=== PATIENT | female | born 1955 | race Asian ===

== ENCOUNTER 2016-10-27 06:36 | Inpatient (IN) | payer OTHER ==
[2016-10-16 12:31] LABS: HEMATOCRIT 39.5 % (36.0-47.0); HGB HCT DIFFERENCE -0.5; MEAN CORPUSCULAR VOLUME 91 fl (80-97); RED BLOOD COUNT 4.34 10^6/uL (3.72-5.28); RED CELL DISTRIBUTION WIDTH 13.1 % (11.5-14.0); WHITE BLOOD COUNT 5.8 10^3/uL (4.0-10.5)
[2016-10-16 12:33] LABS: APPEARANCE,URINE CLEAR; BILIRUBIN,URINE NEGATIVE (NEGATIVE); GLUCOSE, URINE NEGATIVE (NEGATIVE); KETONES,URINE NEGATIVE (NEGATIVE); LEUKOCYTE ESTERASE,URINE LARGE (NEGATIVE); NITRITE,URINE NEGATIVE (NEGATIVE); PROTEIN,URINE NEGATIVE (NEGATIVE); URINE SPECIFIC GRAVITY 1.011; UROBILINOGEN,URINE NEGATIVE mg/dL (<2.0)
[2016-10-16 12:55] LABS: ANION GAP 14 (5-19); BLOOD UREA NITROGEN 17 mg/dL (7-20); CALCIUM 9.6 mg/dL (8.4-10.2); CARBON DIOXIDE 29 mmol/L (22-30); CHLORIDE 104 mmol/L (98-107); CREATININE RESULT 0.68 mg/dL (0.52-1.25); GLUCOSE 82 mg/dL (75-110); POTASSIUM 4.2 mmol/L (3.6-5.0); SODIUM 147.1 mmol/L (137-145)
[~2016-10-27 06:36] MED LIST: BUPIVACAINE INJ/PF LIPOSOME/PF 266 MG/20 ML SDV IJ PRN; CEFAZOLIN INJ 1 GM VIAL IV PRN; CELECOXIB 200 MG CAPSULE PO PRN; LACTATED RINGERS 1000 ML IV PRN; LANSOPRAZOLE 15 MG TAB.RAP.DR PO PRN; LIDOCAINE 0.5% INJ-PF (5 MG/ML) 50 ML SDV SUBCUT PRN; OXYCODONE HCL SR 10 MG TABLET PO PRN; SCOPOLAMINE HYDROBROMIDE 1.5 MG PATCH.TD72 TD PRN; VANCOMYCIN HCL 1,000 MG in DEXTROSE 5%-WATER 250 ML IV PRN
[2016-10-27] MEDS ORDERED: THROMBIN (BOVINE) TOPICAL 20000 UNIT VIAL ONE (07:23)
[2016-10-27] MEDS ORDERED: BUPIVACAINE INJ/PF LIPOSOME/PF 266 MG/20 ML SDV ONE (07:24)
[2016-10-27] MEDS ORDERED: THROMBIN (BOVINE) TOPICAL 5000 UNIT VIAL ONE (07:24)
[2016-10-27] MEDS ORDERED: MIDAZOLAM 2 MG/2 ML INJ ONE (07:46)
[2016-10-27] MEDS ORDERED: FENTANYL CITRATE INJ/PF 100 MCG/2 ML AMPUL ONE (07:46)
[2016-10-27] MEDS ORDERED: PROPOFOL INJ 200 MG/20 ML VIAL IV ONE ×2 (07:47→08:28)
[2016-10-27] MEDS ORDERED: TRANEXAMIC ACID INJ/PF 1,000 MG/10 ML SDV IV ONE ×2 (07:47→12:00)
[2016-10-27] MEDS ORDERED: EPHEDRINE SULFATE INJ 50 MG/1 ML AMPULE ONE (07:47)
[2016-10-27] MEDS ORDERED: DEXMEDETOMIDINE INJ 80 MCG/20 ML VIAL IV ONE (07:47)
[2016-10-27] MEDS: IBUPROFEN 800 MG in NORMAL SALINE 250 ML IV PRN (09:15)
[2016-10-27] MEDS ORDERED: PROMETHAZINE HCL INJ 25 MG/1 ML VIAL IV PRN ×2 (09:25)
[2016-10-27] MEDS ORDERED: MEPERIDINE HCL/PF INJ 25 MG/1 ML DISP.SYRIN IV PRN (09:25)
[2016-10-27] MEDS ORDERED: DIPHENHYDRAMINE HCL 50 MG/ML VIAL IV PRN ×2 (09:25→09:41)
[2016-10-27] MEDS ORDERED: OXYCODONE-ACETAMINOPHEN 5-325 MG TABLET PO PRN ×2 (09:25)
[2016-10-27] MEDS ORDERED: MORPHINE SULFATE 10 MG/ML INJ IV PRN ×4 (09:25→09:41)
[2016-10-27] MEDS ORDERED: ONDANSETRON HCL INJ/PF 4 MG/2 ML SDV IV PRN (09:25)
[2016-10-27] MEDS ORDERED: FENTANYL CITRATE INJ/PF 100 MCG/2 ML AMPUL IV PRN ×3 (09:25)
[2016-10-27] MEDS ORDERED: DIPHENHYDRAMINE HCL 25 MG CAPSULE PO PRN (09:41)
[2016-10-27] MEDS ORDERED: ONDANSETRON 4 MG TAB.RAPDIS PO PRN (09:41)
[2016-10-27] MEDS ORDERED: RINGERS SOLUTION,LACTATED 1,000 ML IV PRN (09:41)
[2016-10-27] MEDS ORDERED: MAG HYDROX/AL HYDROX/SIMETH SUSP 30 ML UDCUP PO PRN (09:41)
[2016-10-27] MEDS ORDERED: ZOLPIDEM TARTRATE 5 MG TABLET PO PRN (09:41)
[2016-10-27] MEDS ORDERED: ACETAMINOPHEN 325 MG TABLET PO PRN (09:41)
[2016-10-27] MEDS ORDERED: MORPHINE SULFATE 10 MG/ML INJ IM PRN (09:41)
--- NOTE | 2016-10-27 09:41 | Operative Report ---
Operative Report DATE OF SURGERY: 10/27/16 PREOPERATIVE DIAGNOSIS: l femoral neck fracture OPERATION: Left hip arthroplasty SURGEON: AJ CLARK ANESTHESIA: Spinal TISSUE REMOVED OR ALTERED: Bone to pathology ESTIMATED BLOOD LOSS: 100 PROCEDURE: Implants used: Femur: Striker #6 Accolade stem Acetabular shell: 50 mm PSL shell Liner:, 36 mm flat cross-link polyethylene liner Head:. 36 mm chrome-cobalt bolt head standard neck The patient is placed in a right lateral decubitus position on the operating table. The left lower extremity and hindquarter is prepped and draped in a sterile fashion. A curvilinear incision was made over the greater trochanter a posterior approach the hip was taken. The femoral head is dislocated and the femoral neck transected using an oscillating saw. Attention was next turned to the acetabulum. Soft tissues cleared off the acetabulum using electrocautery. The acetabulum was then prepared using a series of hemispherical reamers until a 50 millimeters reamer is seated. Subsequently ad millimeters Nathaly titanium PSL shell is impacted into position and secured with one screw. A standard flat 36 millimeters cross-link liner is impacted into the shell. Attention was next turned to the femur. Access is gained to the femoral canal using a box osteotome to the piriformis fossa. The femur is then prepared using a series of broaches until a number 6 broach is seated. A trial reduction was now performed using a 36 millimeters head with standard neck. Preoperative leg length was recreated and is excellent anterior posterior stability. A decision was made to proceed with the above construct. All trial implants were removed. The wound is irrigated with pulsed lavage. A number[] stem is impacted into the femoral canal. A trial reduction was again performed with a 36 mm head and a[] neck. Findings as previously. The hip was dislocated one last time and the final chrome-cobalt head is impacted onto the trunnion. The hip was reduced. Wound is copiously irrigated with pulsed lavage. Sent closed in layers using interrupted Vicryl followed by judy. A sterile dressing is applied and the patient's returned to recovery room in satisfactory patient.
[2016-10-27] MEDS: OXYCODONE HCL SR 10 MG TABLET PO SCH ×2 (11:43→22:10)
[2016-10-27] MEDS ORDERED: LIDOCAINE 2% INJ-PF (20 MG/ML) 10 ML AMPUL ONE (12:00)
[2016-10-27] MEDS: OXYCODONE HCL IR 5 MG TABLET PO PRN ×2 (12:16→17:20)
[2016-10-27] MEDS: ONDANSETRON HCL INJ/PF 4 MG/2 ML SDV IV PRN ×2 (12:59→22:10)
[2016-10-27] MEDS: SENNOSIDES/DOCUSATE 8.6-50 MG 1 EACH TABLET PO SCH (17:20)
[2016-10-27] MEDS: IBUPROFEN 800 MG in NORMAL SALINE 250 ML IV SCH (17:21)
[2016-10-27] MEDS ORDERED: VANCOMYCIN HCL 1,000 MG in DEXTROSE 5%-WATER 250 ML IV ONE (22:00)
[2016-10-27] MEDS: PREGABALIN 75 MG CAPSULE PO SCH (22:10)
[2016-10-27] MEDS: RIVAROXABAN 10 MG TABLET PO SCH (22:10)
[2016-10-28] MEDS: OXYCODONE HCL IR 5 MG TABLET PO PRN (00:35)
[2016-10-28] MEDS: IBUPROFEN 800 MG in NORMAL SALINE 250 ML IV SCH ×3 (03:00→17:45)
[2016-10-28] MEDS: IBUPROFEN 800 MG in NORMAL SALINE 250 ML IV PRN (03:00)
[2016-10-28] MEDS: LANSOPRAZOLE 30 MG TAB.RAP.DR PO SCH (05:50)
[2016-10-28 06:32] LABS: MEAN CORPUSCULAR HGB CONC 33.2 g/dL (32.0-36.0); MEAN CORPUSCULAR VOLUME 90 fl (80-97); RED BLOOD COUNT 2.99 10^6/uL (3.72-5.28); WHITE BLOOD COUNT 6.9 10^3/uL (4.0-10.5)
[2016-10-28 06:47] LABS: ANION GAP 6 (5-19); BLOOD UREA NITROGEN 11 mg/dL (7-20); CALCIUM 8.6 mg/dL (8.4-10.2); CARBON DIOXIDE 26 mmol/L (22-30); CHLORIDE 107 mmol/L (98-107); CREATININE RESULT 0.69 mg/dL (0.52-1.25); GLUCOSE 110 mg/dL (75-110); POTASSIUM 4.5 mmol/L (3.6-5.0); SODIUM 138.8 mmol/L (137-145)
--- NOTE | 2016-10-28 06:53 | PDOC PROGRESS REPORT ---
Subjective Progress Note for:: 10/28/16 Subjective:: Patient complains of minor pain Physical Exam Vital Signs: Temp Pulse Resp BP Pulse Ox 36.8 C 87 17 99/62 L 94 10/28/16 03:00 10/28/16 03:00 10/28/16 03:00 10/28/16 03:00 10/28/16 03:00 Intake & Output 10/26/16 10/27/16 10/28/16 06:59 06:59 06:59 Intake Total 3950 Output Total 2225 Balance 1725 Weight 52.6 kg General appearance: PRESENT: mild distress Head exam: PRESENT: normocephalic Eye exam: PRESENT: EOMI Respiratory exam: PRESENT: unlabored Cardiovascular exam: PRESENT: RRR Pulses: PRESENT: +1 pedal pulses bilateral Vascular exam: PRESENT: normal capillary refill GI/Abdominal exam: PRESENT: soft Rectal exam: PRESENT: deferred Extremities exam: PRESENT: other - Left hip dressing clean dry and intact. Leg lengths are equal. Distal neurovascular examinations intact. Results Laboratory Results: 10/28/16 05:47 10/28/16 05:47 10/27/16 10/28/16 10/28/16 07:27 05:47 05:47 WBC 6.9 RBC 2.99 L Hgb 9.0 L Hct 27.0 L MCV 90 MCH 30.0 MCHC 33.2 RDW 13.0 Plt Count 116 L Sodium 138.8 Potassium 4.5 Chloride 107 Carbon Dioxide 26 Anion Gap 6 BUN 11 Creatinine 0.69 Est GFR ( Amer) > 60 Est GFR (Non-Af Amer) > 60 Glucose 110 Calcium 8.6 Blood Type B POSITIVE Antibody Screen NEGATIVE Impressions: Pelvis X-Ray 10/27/16 09:42 IMPRESSION: Postop left hip replacement. Status: Imported from PACS Assessment & Plan - Diagnosis (1) Fracture of femoral neck, left, closed Is this a current diagnosis for this admission?: YesPlan: 61-year-old female status post left knee arthroplasty, postop day 1 for chronic left femoral neck fracture. Overall postoperative course is been uneventful. Progress with physical therapy is fairly limited. - Time Time Spent with patient: 15-24 minutes Anticipated discharge: Home with Homehealth Within: within 24 hours
[2016-10-28] MEDS: PREGABALIN 75 MG CAPSULE PO SCH ×2 (10:56→22:39)
[2016-10-28] MEDS: OXYCODONE HCL SR 10 MG TABLET PO SCH ×2 (10:56→22:43)
[2016-10-28] MEDS: SENNOSIDES/DOCUSATE 8.6-50 MG 1 EACH TABLET PO SCH ×2 (10:56→17:45)
[2016-10-28] MEDS: PRENATAL VITAMIN W-O CA NO5/FE FUMARATE/FA CAPSULE PO SCH (10:57)
[2016-10-28] MEDS: RIVAROXABAN 10 MG TABLET PO SCH (22:39)
[2016-10-29] MEDS: IBUPROFEN 800 MG in NORMAL SALINE 250 ML IV SCH ×2 (02:57→10:28)
[2016-10-29] MEDS: LANSOPRAZOLE 30 MG TAB.RAP.DR PO SCH (06:37)
[2016-10-29 07:43] LABS: HEMATOCRIT 24.5 % (36.0-47.0); HEMOGLOBIN 8.1 g/dL (12.0-15.5); HGB HCT DIFFERENCE -0.2; MEAN CORPUSCULAR HEMOGLOBIN 29.8 pg (27.0-33.4); MEAN CORPUSCULAR VOLUME 90 fl (80-97); RED BLOOD COUNT 2.71 10^6/uL (3.72-5.28); RED CELL DISTRIBUTION WIDTH 12.9 % (11.5-14.0); WHITE BLOOD COUNT 7.9 10^3/uL (4.0-10.5)
[2016-10-29] MEDS: SENNOSIDES/DOCUSATE 8.6-50 MG 1 EACH TABLET PO SCH ×2 (10:28→17:37)
[2016-10-29] MEDS: PREGABALIN 75 MG CAPSULE PO SCH ×2 (10:29→21:16)
[2016-10-29] MEDS: PRENATAL VITAMIN W-O CA NO5/FE FUMARATE/FA CAPSULE PO SCH (10:29)
[2016-10-29] MEDS: RIVAROXABAN 10 MG TABLET PO SCH (21:16)
[2016-10-30] MEDS: LANSOPRAZOLE 30 MG TAB.RAP.DR PO SCH (05:13)
[2016-10-30 06:45] LABS: HEMATOCRIT 22.8 % (36.0-47.0); HGB HCT DIFFERENCE -0.3; MEAN CORPUSCULAR HEMOGLOBIN 29.9 pg (27.0-33.4); MEAN CORPUSCULAR HGB CONC 33.1 g/dL (32.0-36.0); MEAN CORPUSCULAR VOLUME 91 fl (80-97); RED BLOOD COUNT 2.51 10^6/uL (3.72-5.28); RED CELL DISTRIBUTION WIDTH 12.9 % (11.5-14.0); WHITE BLOOD COUNT 6.8 10^3/uL (4.0-10.5)
[2016-10-30 06:52] LABS: HEMOGLOBIN 7.5 g/dL (12.0-15.5)
--- NOTE | 2016-10-30 07:11 | PDOC DISCHARGE SUMMARY ---
General - Admit/Disc Date/PCP Admission Date/Primary Care Provider: 10/27/16 06:36 JOSELINE THOMSON Discharge Date: 10/30/16 - Discharge Diagnosis (1) Fracture of femoral neck, left, closed Is this a current diagnosis for this admission?: YesSummary: 61-year-old female status post left hip replacement for chronic left femoral neck fracture. (2) Acute blood loss as cause of postoperative anemia Is this a current diagnosis for this admission?: YesSummary: Patient's hematocrit dropped to 22%. She received 2 units of packed red blood cells prior to discharge - Additional Information Resuscitation Status: Full Code Discharge Diet: As Tolerated Discharge Activity: Balance Activity w/Rest Home Medications: Diphenhydramine HCl [Benadryl] 25 mg PO ASDIR PRN 10/14/16 Oxycodone HCl [Oxy-Ir 5 mg Tablet] 5 mg PO Q6HP PRN #0 tablet 10/30/16 Rivaroxaban [Xarelto 10 mg Tablet] 10 mg PO QHS #0 tablet 10/30/16 History of Present Illness History of Present Illness: CHIDI CHAN is a 61 year old female Hospital Course Hospital Course: Patient presents with progressive left hip pain and functional disability and chronic left femoral neck fracture. She is admitted for elective left hip arthroplasty. Physical Exam Vital Signs: Temp Pulse Resp BP Pulse Ox 37.1 C 88 18 106/67 100 10/30/16 03:54 10/30/16 03:54 10/29/16 23:00 10/30/16 03:54 10/30/16 03:54 Intake & Output 10/29/16 10/30/16 10/31/16 06:59 06:59 06:59 Intake Total 900 755 Balance 900 755 Weight 51 kg General appearance: PRESENT: no acute distress Head exam: PRESENT: normocephalic Eye exam: PRESENT: EOMI Respiratory exam: PRESENT: unlabored Pulses: PRESENT: +1 pedal pulses bilateral Vascular exam: PRESENT: normal capillary refill GI/Abdominal exam: PRESENT: soft Rectal exam: PRESENT: deferred Extremities exam: PRESENT: other - Left hip dressing clean dry and intact. Leg lengths are equal. Distal neurovascular examinations intact. Neurological exam: PRESENT: alert, awake, oriented to person, oriented to place , oriented to time, oriented to situation, CN II-XII grossly intact. ABSENT: motor sensory deficit Psychiatric exam: PRESENT: appropriate affect, normal mood. ABSENT: homicidal ideation, suicidal ideation Results Laboratory Results: 10/30/16 06:14 10/28/16 05:47 10/29/16 10/30/16 06:33 06:14 WBC 7.9 6.8 RBC 2.71 L 2.51 L Hgb 8.1 L 7.5 L Hct 24.5 L 22.8 L MCV 90 91 MCH 29.8 29.9 MCHC 33.0 33.1 RDW 12.9 12.9 Plt Count 100 L 123 L Impressions: Pelvis X-Ray 10/27/16 09:42 IMPRESSION: Postop left hip replacement. Status: Imported from PACS Qualifiers [facility] BEING DISCHARGED WITH ANY OF THE FOLLOWING DIAGNOSIS?: No VTE patient discharged on overlapping Therapy?: Yes Plan Discharge Plan: Patient be discharged home with home health nursing, home health physical therapy, we'll Walker, bedside commode. Follow-up will be with Dr. Stefano Marcelo Kiana for surgery approximate 2 weeks for staple removal. Time Spent: Less than 30 Minutes
[2016-10-30] MEDS: PREGABALIN 75 MG CAPSULE PO SCH ×2 (10:31→21:17)
[2016-10-30] MEDS: PRENATAL VITAMIN W-O CA NO5/FE FUMARATE/FA CAPSULE PO SCH (10:32)
[2016-10-30] MEDS: SENNOSIDES/DOCUSATE 8.6-50 MG 1 EACH TABLET PO SCH ×2 (10:32→18:12)
[2016-10-30] MEDS: RIVAROXABAN 10 MG TABLET PO SCH (21:17)
[2016-10-31] MEDS: LANSOPRAZOLE 30 MG TAB.RAP.DR PO SCH (05:30)
[2016-10-31] MEDS: PREGABALIN 75 MG CAPSULE PO SCH (10:43)
[2016-10-31] MEDS: SENNOSIDES/DOCUSATE 8.6-50 MG 1 EACH TABLET PO SCH (10:44)
[2016-10-31] MEDS: PRENATAL VITAMIN W-O CA NO5/FE FUMARATE/FA CAPSULE PO SCH (10:44)
[2016-10-31 16:14] VITALS: BP 105/74
== END 2016-10-31 17:29 | disposition home or self-care (01) | DRG 470 ==
LOC: INOR 06:36 → 4S 11:04
PROVIDERS: ADMIT Orthopaedic Surgery; ATTEND Orthopaedic Surgery
PROC: 0SRB02A Replacement of Left Hip Joint with Metal on Polyethylene Synthetic Substitute, Uncemented, Open Approach (ICD-10-PCS; principal; 2016-10-27 08:45)
PROC: 30233N1 Transfusion of Nonautologous Red Blood Cells into Peripheral Vein, Percutaneous Approach (ICD-10-PCS; 2016-10-31)
DX: S72.92XA Unspecified fracture of left femur, initial encounter for closed fracture (principal); D62 Acute posthemorrhagic anemia; Z87.891 Personal history of nicotine dependence; X58.XXXA Exposure to other specified factors, initial encounter
CPT/HCPCS: 01214; 36415; 36430; 72170; 80048; 81001; 85027; 86850; 86900; 86901; 86920; 86922; 88304; 88311; 94799; C1713; C9290; J0690; J1741; J2250; J2405; J2704; J3010; J3370; J3490; J7050; J7060; P9016; S0119